=== PATIENT | male | born 1980 | race Two or more races ===

== ENCOUNTER 2024-09-05 13:40 | Outpatient (CLI) | payer OTHER ==
[~2024-09-05 13:40] MED LIST: IBUP-1984 PO
[2024-09-05] MEDS ORDERED: iohexol 350MG/ML 100ml bottle IV ONE (13:50)
[2024-09-05 14:17] LABS: ANION GAP 7 (8-16); BLOOD UREA NITROGEN 16 MG/DL (7-18); BUN/CREATININE RATIO 16.8 (10.0-20.0); CALCIUM 8.5 MG/DL (8.5-10.1); CHLORIDE 101 MMOL/L (99-107); CREATININE 0.95 MG/DL (0.60-1.10); GLUCOSE 102 MG/DL (70-104); POTASSIUM 4.4 MMOL/L (3.5-5.1); SODIUM 139 MMOL/L (135-145); TOTAL CARBON DIOXIDE 30.7 MMOL/L (24-32); eGFR 87 ML/MIN
== END 2024-09-05 23:59 | disposition home or self-care (01) ==
LOC: RAD 13:40
PROVIDERS: ATTEND Internal Medicine Interventional Cardiology
DX: I71.019 Dissection of thoracic aorta, unspecified (principal); I20.89 Other forms of angina pectoris
CPT/HCPCS: 36415; 71275; 80048; Q9967